=== PATIENT | female | born 1960 | race Caucasian/White ===

== ENCOUNTER → 2017-07-17 15:32 | Outpatient (CLI) | payer OTHER, SELFPAY ==
--- NOTE | 2017-07-17 15:33 | BI_ITS ---
MAMMOGRAPHY - BILATERAL SCREENING REASON FOR EXAM: Female, 57 years old. Routine annual screening examination. PERTINENT HISTORY: Non-contributory. Remote left stereotactic breast biopsy. TECHNIQUE: Digital bilateral breast tre (3D mammographic acquisition) in the CC and MLO projections. 2-D mediolateral oblique (MLO) and craniocaudad (CC) views of both breasts were obtained. CAD: Full Field Digital Mammography with Computer Added Detection was performed. COMPARISON: Comparison is made with prior study dated July 01, 2016 and June 29, 2015. FINDINGS: Breast Composition: There are scattered areas of fibroglandular density. There are no dominant masses or suspicious calcifications. Once again, a tissue clip marker is seen in the retroareolar region of the left breast. Stable small bilateral benign appearing axillary lymph nodes. No other significant abnormalities are identified. There has been no significant change since the prior study. BI/SCREENING MAMM (CAD), BILAT IMPRESSION: Stable bilateral screening mammogram. Yearly follow-up mammogram recommended. (A) ASSESSMENT CATEGORY: BIRADS Category 2: Benign. A letter regarding these results will be sent to the patient by the facility within 30 days. Approximately 10% of breast cancers are not detected by mammography. A normal mammogram should not delay biopsy of a clinically suspicious abnormality. [id number] Electronically Signed: Giorgio Estrada MD at 8:36 EDT Tel [phone], Service support ,
== END ==
PROVIDERS: Family Provider Internal Medicine; PCP Internal Medicine; Visit Provider Internal Medicine
DX: Z12.31 Encounter for screening mammogram for malignant neoplasm of breast (principal)
CPT/HCPCS: 77063; 77067

== ENCOUNTER → 2017-08-29 11:10 | Outpatient (CLI) | payer OTHER, SELFPAY ==
[2017-09-07 10:02] LABS: HPV, High Risk Negative
== END ==
PROVIDERS: Family Provider Internal Medicine; PCP Internal Medicine; Visit Provider Obstetrics & Gynecology
DX: Z12.4 Encounter for screening for malignant neoplasm of cervix (principal); Z11.51 Encounter for screening for human papillomavirus (HPV)
CPT/HCPCS: 87623; 87624; 88175; G0145

== ENCOUNTER → 2018-01-08 08:23 | Outpatient (CLI) | payer OTHER, SELFPAY ==
[2018-01-07 13:59] VITALS: BMI 30.4
[2018-01-08 09:44] LABS: Anion Gap 8 (5-15); BUN 20 mg/dL (7-18); BUN/Creat Ratio 19.2 RATIO (10-20); Calcium,Total 9.6 mg/dL (8.5-10.1); Chloride 107 mmol/L (98-107); Creatinine, Serum 1.04 mg/dL (0.55-1.02); EST Glomerular Filtration Rate 58 mL/min (>60); Est Glom Filt Rate - Afr Amer 70 mL/min (>60); Glucose 88 mg/dL (74-106); Potassium 4.6 mmol/L (3.5-5.1); Sodium Level 143 mmol/L (136-145)
== END ==
PROVIDERS: Family Provider Internal Medicine; PCP Internal Medicine; Referring Provider Internal Medicine; Visit Provider Internal Medicine
DX: N17.9 Acute kidney failure, unspecified (principal); I10 Essential (primary) hypertension
CPT/HCPCS: 36415; 80048

== ENCOUNTER → 2018-07-22 12:18 | Outpatient (CLI) | payer OTHER, SELFPAY ==
[2018-06-24 13:58] VITALS: BMI 31.3
--- NOTE | 2018-07-22 12:20 | BI_ITS ---
MAMMOGRAPHY - BILATERAL SCREENING REASON FOR EXAM: Female, 58 years old. Routine annual screening examination. PERTINENT HISTORY: Non-contributory. Remote left stereotactic breast biopsy. TECHNIQUE: Digital bilateral breast arley (3D mammographic acquisition) in the CC and MLO projections. 2-D mediolateral oblique (MLO) and craniocaudad (CC) views of both breasts were obtained. CAD: Full Field Digital Mammography with Computer Added Detection was performed. COMPARISON: Comparison is made with prior study dated July 17, 2017 and July 01, 2016. FINDINGS: Breast Composition: There are scattered areas of fibroglandular density. There are no dominant masses or suspicious calcifications. A tissue clip marker is once again seen in the retroareolar region of the left breast. Stable small bilateral axillary lymph nodes. No other significant abnormalities are identified. There has been no significant change since the prior study. BI/SCREEN MAMM (CAD) W/ARLEY BILAT IMPRESSION: Stable bilateral screening mammogram. Yearly follow-up mammogram recommended. (A) ASSESSMENT CATEGORY: BIRADS Category 2: Benign. A letter regarding these results will be sent to the patient by the facility within 30 days. Approximately 10% of breast cancers are not detected by mammography. A normal mammogram should not delay biopsy of a clinically suspicious abnormality. [id number] Electronically Signed: Giorgio Estrada, at 14:11 EDT , Service support ,
== END ==
PROVIDERS: Family Provider Internal Medicine; PCP Internal Medicine; Visit Provider Internal Medicine
DX: Z12.31 Encounter for screening mammogram for malignant neoplasm of breast (principal)
CPT/HCPCS: 77063; 77067

== ENCOUNTER → 2018-12-29 08:46 | Outpatient (CLI) | payer OTHER, SELFPAY ==
[2018-12-29 08:36] VITALS: BMI 31.3
[2018-12-29 08:49] LABS: Mucous, Urine 0 SEEN /hpf (<or=2+)
[2018-12-29 13:06] LABS: Color, Urine Yellow (Yellow); Glucose, Dipstick Normal (Normal); Ketone-Dipstick Negative (Negative); Leukocyte Esterase-Dipstick 500 /ul (Negative); Nitrite-Dipstick Negative (Negative); Occult Blood-Urine 25 /ul (Negative); Protein-Dipstick Negative (Negative); Specific Gravity, Urine 1.015 (1.002-1.030); Urine Bilirubin Dipstick Negative (Negative); Urine Clarity Sl. Cloudy (Clear); Urine Urobilinogen Normal (Normal)
[2018-12-29 13:20] LABS: Bacteria 1+ /hpf (None Seen); Red Blood Cells-Urine 0-5 SEEN /hpf (0-5); Squamous Epithelial Cells - UA 0-5 SEEN /hpf (5-10); White Blood Cells 5-10 SEEN /hpf (0-5)
== END ==
PROVIDERS: Family Provider Internal Medicine; PCP Internal Medicine; Visit Provider Internal Medicine
DX: R30.0 Dysuria (principal)
CPT/HCPCS: 81001; 87086; 87088; 87186

== ENCOUNTER → 2018-12-31 07:46 | Outpatient (CLI) | payer OTHER, SELFPAY ==
[2018-12-24 16:01] VITALS: BMI 31.3
[2018-12-29 08:36] VITALS: BMI 31.3
--- NOTE | 2018-12-31 07:48 | US_ITS ---
STUDY: ABDOMINAL ULTRASOUND REASON FOR EXAM: Female, 58 years old. Abdominal pain. TECHNIQUE: Transabdominal ultrasound was performed with real-time and static paul scale imaging. TECHNICAL QUALITY: Limited. Examination limited by bowel gas. COMPARISON: None. FINDINGS: Liver: The liver measures 17.7 cm. There is increased echogenicity consistent with fatty infiltration. The bile ducts are within normal limits. There is hepatic color flow. The direction of portal flow is hepatopetal. There is no demonstrated mass lesion. Portal vein measurement: Gallbladder: Normal distended gallbladder. The gallbladder wall measures 3.0 mm. There is a negative sonographic Reeves's sign. There is no pericholecystic fluid. There are no gallstones. Common Bile Duct (C.B.D.): The common bile duct measures 5.0 mm. Pancreas: Normal size of the head, body and tail of the pancreas. There is normal echogenicity of the pancreas. There is no demonstrated pancreatic mass or cyst. Right Kidney: Normal size of the right kidney. The right kidney measures 10.6 cm x 5.0 cm x 3.7 cm. Normal renal cortex. The right cortex measures 1.2 cm. There is no demonstrated renal mass or cyst. There is no right hydronephrosis. Left Kidney: Normal size of the left kidney. The left kidney measures 11.8 cm x 5.2 cm x 5.3 cm. Normal renal cortex. The left cortex measures 1.8 cm. There is no demonstrated renal mass or cyst. There is no left hydronephrosis. Aorta: Unremarkable I.V.C.: The IVC is patent. There is no ascites. US/Abdomen Complete IMPRESSION: Fatty infiltration of the liver. Electronically Signed: Giorgio Estrada, at 10:13 EST , Service support ,
== END ==
PROVIDERS: Family Provider Internal Medicine; PCP Internal Medicine; Referring Provider Internal Medicine; Visit Provider Internal Medicine
DX: R10.9 Unspecified abdominal pain (principal)
CPT/HCPCS: 76700

== ENCOUNTER → 2019-08-06 07:35 | Outpatient (CLI) | payer OTHER, SELFPAY ==
[2019-08-05 15:34] VITALS: BMI 31.6
--- NOTE | 2019-08-06 07:35 | RAD_ITS ---
STUDY: X-RAY - LUMBAR SPINE REASON FOR EXAM: Female, 59 years old. CHRONIC LOW BACK PAIN WITH RADIATION DOWN LLE. HX OLD TRAUMA AND SURGERY. TECHNIQUE: 5 view(s) of the lumbar spine were obtained including oblique views. COMPARISON: Comparison is made with prior study dated March 28, 2015. FINDINGS: Normal lumbar lordosis. There is a mild dextroscoliosis of the lumbar spine. There is a normal alignment of the vertebrae. There is multilevel endplate spondylosis of the lumbar vertebrae. There is multi-level degenerative disc disease with multi-level disc space narrowing. Facet joint osteoarthritis The soft tissue structures are unremarkable. RAD/L/S Spine Min 4 Views IMPRESSION: Degenerative changes of the spine, as detailed above. Electronically Signed: Giorgio Estrada, at 10:54 EDT , Service support ,
== END ==
PROVIDERS: PCP Internal Medicine; Referring Provider Internal Medicine; Visit Provider Internal Medicine
DX: M54.9 Dorsalgia, unspecified (principal); G89.29 Other chronic pain
CPT/HCPCS: 72110

== ENCOUNTER → 2019-08-26 13:00 | Outpatient (CLI) | payer OTHER, SELFPAY ==
[2019-08-05 15:34] VITALS: BMI 31.6
--- NOTE | 2019-08-26 13:01 | BI_ITS ---
MAMMOGRAPHY - BILATERAL SCREENING REASON FOR EXAM: Female, 59 years old. Routine annual screening examination. PERTINENT HISTORY: Non-contributory. Remote left stereotactic breast biopsy. TECHNIQUE: Digital bilateral breast arley (3D mammographic acquisition) in the CC and MLO projections. 2-D mediolateral oblique (MLO) and craniocaudad (CC) views of both breasts were obtained. CAD: Full Field Digital Mammography with Computer Added Detection was performed. COMPARISON: Comparison is made with prior examination dated July 22, 2018 and July 17, 2017. FINDINGS: Breast Composition: There are scattered areas of fibroglandular density. There are no dominant masses or suspicious calcifications. A tissue clip marker is once again seen in the retroareolar region of the left breast. This is unchanged. No other significant abnormalities are identified. There has been no significant change since the prior study. BI/SCREEN MAMM (CAD) W/ARLEY BILAT IMPRESSION: Stable bilateral screening mammogram. Yearly follow-up mammogram recommended. (A) ASSESSMENT CATEGORY: BIRADS Category 2: Benign. A letter regarding these results will be sent to the patient by the facility within 30 days. Approximately 10% of breast cancers are not detected by mammography. A normal mammogram should not delay biopsy of a clinically suspicious abnormality. [id number] Electronically Signed: Giorgio Estrada, at 8:18 EDT , Service support ,
== END ==
PROVIDERS: PCP Internal Medicine; Referring Provider Internal Medicine; Visit Provider Internal Medicine
DX: Z12.31 Encounter for screening mammogram for malignant neoplasm of breast (principal)
CPT/HCPCS: 77063; 77067

== ENCOUNTER → 2019-10-15 06:36 | Outpatient (CLI) | payer OTHER, SELFPAY ==
[2019-08-05 15:34] VITALS: BMI 31.6
--- NOTE | 2019-10-15 06:44 | MRI_ITS ---
STUDY: MRI LUMBAR SPINE WITHOUT CONTRAST REASON FOR EXAM: Female, 59 years old. back pain and leg numbness, nki TECHNIQUE: Standardized fat and water weighted pulse sequences were obtained in the sagittal and axial planes. COMPARISON: 03/13/2012 FINDINGS: T12-L1: Normal endplates. Normal disc height, hydration and morphology. Normal bilateral facet joints. Normal central canal and bilateral lateral recesses. Normal bilateral intervertebral neural foramina. Normal lumbar lordosis. There is no substantial scoliosis. Normal conus medullaris that terminates at the L1-2: Endplate spondylosis. Decreased disc height and small circumferential disc bulge. Degenerative changes of the bilateral facet joints. Mild narrowing of the central canal and bilateral intervertebral neural foramina. L2-3: Endplate spondylosis. Decreased disc height and small circumferential disc bulge. Degenerative changes of the bilateral facet joints. Mild narrowing of the central canal and bilateral intervertebral neural foramina. L3-4: Endplate spondylosis. Decreased disc height and small circumferential disc bulge. Degenerative changes of the bilateral facet joints. No central canal. Mild narrowing of the bilateral intervertebral neural foramina. L4-5: Endplate spondylosis. Decreased disc height and small circumferential disc bulge. Degenerative changes of the bilateral facet joints. Mild narrowing of the central canal and bilateral intervertebral neural foramina. L5-S1: Endplate spondylosis. Decreased disc height and small circumferential disc bulge. Degenerative changes of the bilateral facet joints. Mild narrowing of the central canal and bilateral intervertebral neural foramina. Normal visualized sacral ala. Normal visualized paraspinous soft tissue structures. MRI/Spine Lumbar (Routine) IMPRESSION: Multilevel degenerative changes, as described above. Postsurgical changes from prior left foraminal discectomy at L2-3 there is no recurrent herniation. Electronically Signed: Missael Griffin, at 7:52 EDT Tel , Service support ,
== END ==
PROVIDERS: PCP Internal Medicine; Referring Provider Anesthesiology Pain Medicine; Visit Provider Anesthesiology Pain Medicine
DX: M54.9 Dorsalgia, unspecified (principal); R20.0 Anesthesia of skin
CPT/HCPCS: 72148

== ENCOUNTER 2019-11-26 16:30 | Outpatient (RCR) | payer OTHER, SELFPAY ==
[2019-08-05 15:34] VITALS: BMI 31.6
--- NOTE | 2019-08-15 09:05 | HP.PTEVAL ---
Patient's Visit Information JUANITA BERMEO is a 59 year old F referred to Physical Therapy by Dr. Maxx Philip MD with a diagnosis of DORSALGIA AND CHRONIC PAIN. Date of Evaluation: 08/12/19 Physical Therapist: Balbina Shipman, PT, Cert MDT - Visit Plan Frequency: 2-3x /Week Duration: 4-6 Weeks Plan: AQUATIC THERAPY FOR PAIN RELEIF, POSTURE CORRECTION/STRENGTHENING, INSTRUCTION IN APPROPRIATE BODY MECHANICS AND ACTIVITY MODIFICATIONS. DLS STARTING WITH A NEUTRAL SPINE PROGRESSING ROM TOLERATED. TIARA LE ROM, STRETCHING AND STRENGTHENING. HEP INSTRUCTION. 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 Disability: NO. Present symptoms: LOW BACK PAIN, TIARA BUTTOCK AND THIGH PAIN LEFT > RIGHT. LEFT THIGH NUMBNESS (CHRONIC). Present since: CHRONIC. SEEMS TO HAVE STARTED TO FLARE UP WAY WORSE SINCE APRIL 2019. Pain Scale: WORST 6/10, LEAST 1-2/10. Currently: 3/10. Commenced as a result of: NO APPARENT REASON. Symptoms at onset: LOW BACK. Worse: STANDING IS THE WORST, SITTING IS THE SECOND WORST. Better: WALKING AND MOVING. LYING DOWN. ICE, PRONE. Disturbed sleep: NO - SLEEPS ON STOMACH. Previous history/Previous treatment: 2 LUMBAR DISCECTOMIES: ONE ABOUT 5 YEARS AGO THEN A SECOND TWO MONTHS LATER. DR. GARCIA DID BOTH SURGERIES. 3 MARIELENA'S IN THE PAST. 2 MORE PENDING STARTING NEXT FRIDAY. PT HERE IN THE PAST FOR BACK AT LEAST 2 TIMES. NO CHIROPRACTIC. MASSAGES. ALEVE, TYLONOL, BIOFREEZE, ICY HOT, OCCASSIONALLY FLEXERIL. PATIENT REPORTS THAT ABOUT 5 YEARS AGO SHE TWISTED WRONG AND THAT LEAD TO HER BACK SURGERIES. Coughing/sneezing/straining: NEGATIVE. Gait: SOMETIMES LEFT LEG FEELS WEAK BUT FEELS SHE WALKS NORMAL. Difficulty initiating urinatin: NO. Accidents: NO. Unexplained weight loss: NO. Imaging: RECENT LUMBAR X-RAY. COMPARISON: Comparison is made with prior study dated March 28, 2015. . FINDINGS: Normal lumbar lordosis. There is a mild dextroscoliosis of the lumbar. spine. There is a normal alignment of the vertebrae. There is multilevel endplate spondylosis of the lumbar vertebrae. There is. multi-level degenerative disc disease with multi-level disc space. narrowing. Facet joint osteoarthritis. The soft tissue structures are unremarkable. . RAD/L/S Spine Min 4 Views. IMPRESSION: Degenerative changes of the spine, as detailed above. PMH: HTN, HIGH CHOLESTEROL, DEPRESSION. OTHER: I CAN'T EVEN SIT IN A CHAIR TO READ THE NEWPAPER IN THE EVENING. DRIVING 6.5 HRS IN A WEEK TO SEE GRANDCHILD. WALKING TWO MILES EVERY DAY - INCREASES BACK SORENESS. - Objective Sitting/Standing Posture: POOR. SLOUCHED WITH FORWARD HEAD AND ROUNDED SHOULDERS. Lordosis: DECREASED. Lateral shift: NO. Relevant shift: N/A. Active Correction of posture: WORSE. Other Observations: INDEP GAIT AND TRANSFERS. TRASFERS ARE GUARDED. Motor deficit: TIARA LE'S 5/5 WITH MMT'ING EXCEPT RIGHT HIP 4/5, LEFT HIP 4-/5 AND LEFT KNEE EXT 4/5. Sensory deficit: DECTREASED LEFT THIGH COMPARED TO RIGHT. ROM deficit: TIGHT TIARA HS'S AND GASTROC SOLEUS COMPLEX'S. Reflexes: NT. Dural Signs: POSITIVE LLE. Lumbar mvmt loss: flex - MIN - INCREASES LEFT LBP. ext - MOD - NE. R SG - MIN - NE. L SG - MOD - NE. Core strength: POOR. Palpation: NO ACUTE THORACIC OR LUMBAR TENDERNESS. TREATMENT: NEUROMUSCULAR REEDUCATION - RETRAINING OF MVMT AND POSTURE FOR SITTING, LYING AND STANDING ACTIVITIES. - Goals Goal 1:: DECREASE C/O TIARA LBP AND LE SX'S (LEFT LE SX'S ARE > RIGHT). Goal Time Frame: 4-6 Weeks Goal 2:: IMPROVE LIFTING, SITTING, STANDING, SOCIAL LIFE, TRAVEL AND WORK FUNCTION Goal Time Frame: 4-6 Weeks Goal 3:: INSTRUCT IN PROPHYLAXIS Goal Time Frame: 4-6 Weeks - Anticipated Interventions Patient/Client Instruction: Educate patient on: Condition, Plan of Care, Risk Factors, Benefits of Fitness Program For the Purpose of:: To improve self management Therapeutic Exercise to Include: Strength training, Body mechanics, Postural training, Flexibilty training, Neuromotor development, In an aquatic setting, Dynamic Lumbar Stabilization For the Purpose of:: To decrease pain, To increase ROM, To improve muscle performance and motor function, To increase tolerance to activity/condition/position, To improve ability of physical actions for home/community/work/leisure Thank you for the opportunity to evaluate your patient. For Medicare and Medicare HMO plans, please review the plan of care and approve it. It will need to be FAXED BACK to us at [phone] for Medicare purposes. For Medicare only, by signing this I certify the plan of care. Please let me know if there are questions or concerns regarding this plan of care. Physician Signature: Date:
--- NOTE | 2019-09-17 16:55 | HP.PTREVAL ---
Dr. Maxx Philip MD, It has been my pleasure to treat JUANITA BERMEO over the last 11 visits for DORSALGIA AND CHRONIC PAIN. Please see the progress note below for an update on the physical therapy plan of care! Subjective: PATIENT REPORTS SHE IS DOING A LOT BETTER. SHE REPORTS THE SHOTS IN HER HIPS AND THE WATER THERAPY IS HELPING. HER BACK AND LEG PAIN ARE BETTER. HER LEG AND CORE STRENGTH ARE GETTING BETTER. FEELS IT COULD BE BENEFICIAL TO CONTINUE PT TO HELP GET STRONGER. SOMETIMES HAVING MORE MID BACK PAIN. Objective/Function: PATIENT WAS SEEN TODAY FOR RE-ASSESSMENT OF PROGRESS TOWARD THE SET PT GOALS AND THE NEED FOR FURTHER PHYSICAL THERAPY VS READINESS FOR DISCHARGE. PATIENT IS MAKING GOOD PROGRESS TOWARD ALL PT GOALS AND IS A GOOD CANDIDATE TO CONTINUE AQUATIC THERAPY DECRASING TO 2 TIMES A WEEK AND INDREASING INDEP EX AT HOME BASED ON PROGRESS MADE AND ROOM FOR MORE IMPROVEMNT. UPON EXAM TODAY: INDEP GAIT AND TRANSFERS. Motor deficit: TIARA LE'S 5/5 WITH MMT'ING EXCEPT RIGHT HIP 4/5, LEFT HIP 4/5. Sensory deficit: DECTREASED LEFT THIGH COMPARED TO RIGHT. ROM deficit: TIGHT TIARA HS'S AND GASTROC SOLEUS COMPLEX'S. Reflexes: NT. Dural Signs: NEGATIVE TIARA LE'S. Lumbar mvmt loss: flex - VERY MINIMAL. ext - MOD - NE. R SG - MIN - NE. L SG - MOD - NE. PATIENT DENIES INCREASED PAIN WITH LUMBAR ROM TESTING ALL PLANES TODAY. Core strength: POOR Plan Plan: CONTINUE AT 2 TIMES A WEEK X 10 VISITS. Goals Goal 1:: DECREASE C/O TIARA LBP AND LE SX'S (LEFT LE SX'S ARE > RIGHT). Goal Time Frame: 4-6 Weeks Goal Progress: Progressing Goal 2:: IMPROVE LIFTING, SITTING, STANDING, SOCIAL LIFE, TRAVEL AND WORK FUNCTION Goal Time Frame: 4-6 Weeks Goal Progress: Progressing Goal 3:: INSTRUCT IN PROPHYLAXIS Goal Time Frame: 4-6 Weeks Goal Progress: Progressing Anticipated Interventions Patient/Client Instruction: Educate patient on: Condition, Plan of Care, Risk Factors, Benefits of Fitness Program For the Purpose of:: To improve self management Therapeutic Exercise to Include: Strength training, Body mechanics, Postural training, Flexibilty training, Neuromotor development, In an aquatic setting, Dynamic Lumbar Stabilization For the Purpose of:: To decrease pain, To increase ROM, To improve muscle performance and motor function, To increase tolerance to activity/condition/position, To improve ability of physical actions for home/community/work/leisure Please do not hesitate to contact me at [phone] by phone or if you have questions or concerns regarding this new plan of care! Sincerely, Balbina Shipman, PT, Cert MDT
--- NOTE | 2019-10-22 16:59 | HP.PTREVAL ---
Dr. Maxx Philip MD, It has been my pleasure to treat JUANITA BREMEO over the last 21 visits for DORSALGIA AND CHRONIC PAIN. Please see the progress note below for an update on the physical therapy plan of care! Subjective: PATIENT REPORTS HE LEGS AND HIPS ARE 95% BETTER AND HER BACK PAIN IS LESS INTENSE BUT STILL CONSTANT. PATIENT REPORTS SHE RARELY FEELS IT IN HER LEGS ANYMORE. MY LEGS HAVE DEFINATELY GOT STRONGER TOO. PATIENT REPORTS SHE JUST WANTS TO BE ABLE TO GO FOR A WALK BUT THE BACK PAIN STOPS HER. PATIENT REPORTS IT HELPS HER BACK WHEN SHE IS IN THE POOL. STILL DOES GET A LITTLE NUBMNESS IN THE LEFT HIP/THIGH BY THE END OF THE DAY. Objective/Function: PATIENT WAS SEEN TODAY FOR RE-ASSESSMENT OF PROGRESS TOWARD THE SET PT GOALS AND THE NEED FOR FURTHER PHYSICAL THERAPY VS READINESS FOR DISCHARGE. PATIENT IS MAKING GOOD PROGRESS IN TERMS OF LE STRENGTH BUT NOT IN TERMS OF BACK PAIN. PATIENT ACTUALLY HAS INCREASED LUMBAR MVMT LOSS SINCE LAST RE-CHECK AND MAY BE A GOOD CANDIDATE FOR SPECIALIST CONSULT INCONJUCTION WITH BELOW AT PLAN. UPON EXAM TODAY: INDEP GAIT AND TRANSFERS. Motor deficit: TIARA LE'S 5/5 WITH MMT'ING. Sensory deficit: MILD DECTREASED LEFT THIGH COMPARED TO RIGHT AND THIS IS A SIGNIFICANT IMPROVEMENT BECAUSE THE NUMBNESS HAS BEEN THERE SINCE HER FIRST BACK SURGERY AND NOW IMPROVING. ROM deficit: TIGHT TIARA HS'S AND GASTROC SOLEUS COMPLEX'S. Reflexes: NT. Dural Signs: NEGATIVE TIARA LE'S. Lumbar mvmt loss: flex - MOD - NE. ext - MILANA - NE. R SG - MILANA- NE. L SG - MILANA - NE. PATIENT DENIES INCREASED PAIN WITH LUMBAR ROM TESTING ALL PLANES TODAY BUT IS DEFINATELY STIFFER THAN LAST RE-CHECK. Core strength: POOR Plan Plan: Recommend transition to I pool program (of choice) at this time with 1x a week AT for x4 weeks to help with transition. Has been given her own copy of I pool program. PATIENT IS AGREEABLE. Goals Goal 1:: DECREASE C/O TIARA LBP AND LE SX'S (LEFT LE SX'S ARE > RIGHT). Goal Time Frame: 4-6 Weeks Goal Progress: Progressing Goal 2:: IMPROVE LIFTING, SITTING, STANDING, SOCIAL LIFE, TRAVEL AND WORK FUNCTION Goal Time Frame: 4-6 Weeks Goal Progress: Progressing Goal 3:: INSTRUCT IN PROPHYLAXIS Goal Time Frame: 4-6 Weeks Goal Progress: Progressing Anticipated Interventions Patient/Client Instruction: Educate patient on: Condition, Plan of Care, Risk Factors, Benefits of Fitness Program For the Purpose of:: To improve self management Therapeutic Exercise to Include: Strength training, Body mechanics, Postural training, Flexibilty training, Neuromotor development, In an aquatic setting, Dynamic Lumbar Stabilization For the Purpose of:: To decrease pain, To increase ROM, To improve muscle performance and motor function, To increase tolerance to activity/condition/position, To improve ability of physical actions for home/community/work/leisure Please do not hesitate to contact me at [phone] by phone or if you have questions or concerns regarding this new plan of care! Sincerely, Balbina Shipman, PT, Cert MDT
--- NOTE | 2019-11-26 16:55 | HP.PTDCSUM ---
It has been my pleasure to treat JUANITA BERMEO referred by Dr. Maxx Philip MD, with the diagnosis of DORSALGIA AND CHRONIC PAIN for a total of 25 visit(s). Discharge Date: 11/26/19 Please see the following information for a summary of their discharge status. Subjective: I AM ALMOST WISHING I WOULDN'T HAVE GOT THAT THIRD INJECTION (ABOUT 2 WEEKS AGO) BECAUSE I AM FEELING THE NUMBNESS AND WEAKNESS IN THE LEFT LEG AGAIN. PATIENT REPORTS THAT PRIOR TO THE SHOT SHE FELT LIKE HER LEGS WERE 100% BETTER. OVER ALL STILL BETTER: NO HIP PAIN NOW THOUGH. BACK PAIN IS MUCH MORE TOLERABLE NOW. I CAN SIT NOW WITHOUT HORRIBLE PAIN AND I CAN STAND LONGER NOW TOO. FEELS READY TO BE DISCHARGED. FOLLOW UP WITH DR. ANTON PENDING DEC [address] ANTON REFERRED HER TO DR. VICTORIA FOR A BACK CONSULT. Lumbar Spine Pain Intensity (Out of 10): 0 RLE Pain Intensity (Out of 10): 0 LLE Pain Intensity (Out of 10): 3 % Improvement: 80 Objective/Function: PATIENT WAS SEEN TODAY FOR RE-ASSESSMENT OF PROGRESS TOWARD THE SET PT GOALS AND THE NEED FOR FURTHER PHYSICAL THERAPY VS READINESS FOR DISCHARGE. UPON EXAM TODAY HER BACK ROM IS A LITTLE BIT BETTER ALL PLANES AND TESTING DOES NOT PROVOKE PAIN. PATIENT IS CONCERNED ABOUT THE WEAKNESS IN HER LEFT LEG SINCE HAVING THE LAST INJECTION. WITH TESTING TODAY HER LEFT HIP IS WEAKER THAN THE RIGHT AND GRADED 4/5. SHE STILL HAS DECREASED LIGHT TOUCH SENSATION OF THE LEFT THIGH COMPARED TO THE RIGHT AND SHE SAID THAT THIS NUMBNESS WAS ALMOST GONE UNTIL THE LAST SHOT. Goal 1:: DECREASE C/O TIARA LBP AND LE SX'S (LEFT LE SX'S ARE > RIGHT). Goal Progress: Goal Met Goal 2:: IMPROVE LIFTING, SITTING, STANDING, SOCIAL LIFE, TRAVEL AND WORK FUNCTION Goal Progress: Goal Met Goal 3:: INSTRUCT IN PROPHYLAXIS Goal Progress: Goal Met Plan: D/C TO [facility] POOL PROGRAM AND FOLLOW UP WITH DR. ANTON AND DR. VICTORIA. PATIENT IS AGREEABLE. If there are questions or concerns regarding this patient's physical therapy, please feel free to call me at [phone]. Thank you for the referral of this patient. Sincerely, Balbina Shipman, PT, Cert MDT
== END 2019-11-26 17:00 | disposition home or self-care (01) ==
LOC: PT 16:30
PROVIDERS: PCP Internal Medicine; Referring Provider Internal Medicine; Visit Provider Internal Medicine
DX: M54.9 Dorsalgia, unspecified (principal); G89.29 Other chronic pain
CPT/HCPCS: 97112; 97113; 97162; 97164

== ENCOUNTER → 2019-12-23 16:16 | Outpatient (CLI) | payer OTHER, SELFPAY ==
--- NOTE | 2019-12-23 | SKTAG_PTH ---
PATIENT: JUANITA [facility]ERMEO [facility] U#:[id number] AGE/SX: 64/F ROOM: RE12/23/[address]: Dr. Mia Arroyo MD : 1960 BED: DIS: SPEC #: [id number] RECD: 12/23/19 16:12 STATUS: LIZ MCCLOUD #: [id number] ANGEL: 12/23/19 00:[address]: Mia Arroyo DEPT: SURGICAL PATHOLOGY RECD BY: Yani Michele ENTERED: 12/24/19 06:34 SP TYPE: SKIN TAG NELSON DR: Dr. 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 See comment. SJ:juno 12/27/19 COMMENT The lesion may represent condyloma. Case has been reviewed in consultation with Dr. Melgar who concurs with the above diagnosis. IDC:AM MICROSCOPIC DESCRIPTION Slides are reviewed. GROSS DESCRIPTION Received is one container labeled with the patient's name and not further designated. The specimen consists of two polypoid pieces of pradhan-brown skin measuring 0.8 x 0.3 x 0.1 cm and 0.5 x 0.4 x 0.1 cm. The entire specimen is submitted in one cassette. / PRINCE:juno 12/24/19 TC: 5 CPT: 66408
[2019-12-23 09:27] VITALS: BMI 31.4
== END ==
PROVIDERS: PCP Internal Medicine; Visit Provider Obstetrics & Gynecology
DX: L85.9 Epidermal thickening, unspecified (principal)
CPT/HCPCS: 88304; 88305

== ENCOUNTER → 2020-02-03 07:41 | Outpatient (CLI) | payer OTHER, SELFPAY ==
[2020-01-27 14:09] VITALS: BMI 31.4
[2020-02-03 08:44] LABS: Anion Gap 5 (5-15); BUN 17 mg/dL (7-18); Calcium,Total 9.5 mg/dL (8.5-10.1); Chloride 107 mmol/L (98-107); Creatinine, Serum 1.06 mg/dL (0.55-1.02); EST Glomerular Filtration Rate 56 mL/min (>60); Est Glom Filt Rate - Afr Amer 68 mL/min (>60); Glucose 98 mg/dL (74-106); Potassium 4.6 mmol/L (3.5-5.1); Sodium Level 141 mmol/L (136-145)
== END ==
PROVIDERS: PCP Internal Medicine; Referring Provider Internal Medicine; Visit Provider Internal Medicine
DX: I10 Essential (primary) hypertension (principal)
CPT/HCPCS: 36415; 80048

== ENCOUNTER → 2020-09-13 11:26 | Outpatient (CLI) | payer OTHER, SELFPAY ==
[2020-07-26 15:23] VITALS: BMI 31.6
--- NOTE | 2020-09-13 11:29 | BI_ITS ---
MAMMOGRAPHY - BILATERAL SCREENING REASON FOR EXAM: Female, 60 years old. Routine annual screening examination. PERTINENT HISTORY: Non-contributory. Remote left stereotactic breast biopsy. TECHNIQUE: Digital bilateral breast raley (3D mammographic acquisition) in the CC and MLO projections. 2-D mediolateral oblique (MLO) and craniocaudad (CC) views of both breasts were obtained. CAD: Full Field Digital Mammography with Computer Added Detection was performed. COMPARISON: Comparison is made with prior examination dated 08/26/2019 and 07/22/2018. FINDINGS: Breast Composition: There are scattered areas of fibroglandular density. There are no dominant masses or suspicious calcifications. A tissue clip marker is once again seen in the retroareolar region of the left breast. No other significant abnormalities are identified. There has been no significant change since the prior study. BI/SCRN MAMM (CAD)W/ARLEY BILAT IMPRESSION: Stable bilateral screening mammogram. Yearly follow-up mammogram recommended. (A) ASSESSMENT CATEGORY: BIRADS Category 2: Benign. A letter regarding these results will be sent to the patient by the facility within 30 days. Approximately 10% of breast cancers are not detected by mammography. A normal mammogram should not delay biopsy of a clinically suspicious abnormality. [id number] Electronically Signed: Giorgio Estrada MD at 12:26 EDT , Service support ,
--- NOTE | 2020-09-13 11:33 | BD_ITS ---
STUDY: DUAL ENERGY X-RAY ABSORPTIOMETRY / DXA REASON FOR EXAM: Female, 60 years old. Osteopenia TECHNIQUE: Bone Mineral Density (BMD) measurements of lumbar spine and bilateral hips were obtained. COMPARISON: Comparison is made with prior examination dated 10/13/2014. FINDINGS: Lumbar Spine (L1-L4): g/cm2 (0.948) / T-score (-1.0) / Z-score (0.7) Findings are suggestive of normal bone density with a low fracture risk. Left Femur Total: g/cm2 (0.795) / T-score (-1.2) / Z-score (-0.1) Left Femoral Neck: g/cm2 (0.649) / T-score (-1.8) / Z-score (-0.4) Right Femur Total: g/cm2 (0.791) / T-score (-1.2) / Z-score (-0.2) Right Femoral Neck: g/cm2 (0.609) / T-score (-2.2) / Z-score (-0.8) The T-Scores on the most recent prior examination were: Lumbar Spine (L1-L4): There has been worsening of bone density since the previous examination. Left Femur Total: which represents a worsening of 3.3%. Right Femur Total: which represents a worsening of 0.5%. BD/Dexa Bone Density Study IMPRESSION: The patient is considered osteopenic as outlined below according to World Henry Organization (WHO) criteria with a high fracture risk. There has been worsening of bone density since the previous examination. Reference Information: The T-score is the number of standard deviations above or below the standard which is normal for young adults at their peak bone mineral density. The World Health Organization (WHO) interprets the T-scores as follows: Above -1 Normal bone density Between -1 and -2.5 Osteopenia Equal to / or below -2.5 Osteoporosis As a practical clinical guideline, osteopenia may be graded as follows: Mild -1 through -1.5 Moderate -1.6 through -2.0 Severe -2.1 through -2.4 The Z-score is the number of standard deviations above or below age-matched controls. A Z-score of less than -1.5 would be considered abnormal. References: 1. NIH Osteoporosis and Related Bone Diseases www osteo.org 2. International Society for Clinical Densitometry www iscd.org 3. National Osteoporosis Foundation www nof.org Electronically Signed: Giorgio Estrada MD at 12:28 EDT , Service support ,
== END ==
PROVIDERS: PCP Internal Medicine; Referring Provider Internal Medicine; Visit Provider Internal Medicine
DX: Z12.31 Encounter for screening mammogram for malignant neoplasm of breast (principal); Z78.0 Asymptomatic menopausal state
CPT/HCPCS: 77063; 77067; 77080

== ENCOUNTER 2020-10-02 07:46 | Emergency (ER) | payer OTHER, SELFPAY ==
[2020-09-21 13:45] VITALS: BMI 31.6
[2020-10-02 07:48] VITALS: BP 157/105; PULSE 87; RESP 15; TEMP 35.5; O2SAT 98; BMI 31.6
--- NOTE | 2020-10-02 07:53 | EKG12_ITS ---
Test Reason : CP Blood Pressure : / mmHG Vent. Rate : 076 BPM Atrial Rate : 076 BPM P-R Int : 176 ms QRS Dur : 086 ms QT Int : 372 ms P-R-T Axes : 032 -03 087 degrees QTc Int : 418 ms Normal sinus rhythm Nonspecific T wave abnormality Abnormal ECG Confirmed by DOMINGA ANN, DALILA ([id number]), publications editor POLO KNUTSON ([id number]) on 10/04/2020 10:35:37 AM Referred By: COLT Confirmed By:DALILA ORR MD
[2020-10-02 08:14] LABS: Absolute Lymphocyte Count 1.61 X10^3/uL (0.83-4.51); Absolute Neutrophil Count 2.6 X10^3/uL (2.0-7.7); Basophil# 0.03 X10^3/uL; Basophil% 0.6 % (0-1); Eosinophil# 0.19 X10^3/uL; Eosinophils% 3.9 % (0-5); Hemoglobin 13.9 g/dL (12.0-15.0); Lymphocyte # 1.61 X10^3/ul (0.83-4.51); Lymphocyte % 33.2 % (19-41); Mean Corp Hgb Conc 32.3 g/dL (32-36); Mean Corpuscular Hgb 30.2 pg (27.0-32.0); Mean Corpuscular Volume 93.5 fL (81-99); Mean Platelet Vol. 9.7 fl (6.2-12.0); Monocyte# 0.42 X10^3/uL; Monocyte% 8.7 % (0-10); NRBC Flagged by Analyzer 0 % (0-5); Neutrophil # 2.59 X10^3/uL (2.7-7.7); Neutrophil % 53.4 % (47-70); Platelet Count 222 K/mm3 (150-450); RBC Distribution Width CV 12.3 % (11.6-14.6); RBC Distribution Width SD 42.3 fl (35.1-43.9); White Blood Count 4.9 K/mm3 (4.4-11.0)
--- NOTE | 2020-10-02 08:14 | ED.VIS.CHEST ---
HPI History of Present Illness Chief Complaint: Chest Pain Informant: patient Narrative Narrative: Patient is a 60-year-old female with a past medical history of hypertension, hyperlipidemia who presents to the emergency department for intermittent chest pain. She states that this started yesterday. She describes it as a sharp sensation just deep to the left breast. It does not radiate. It has come and gone many times since yesterday. Sometimes it lasts for a few seconds other times last for quite a while. She has never had this before in the past. No associated shortness of breath. She does not know aggravating or relieving factors. Exertion does not make it worse. Deep breathing does not make it worse. She denies any abdominal pain or nausea/vomiting. No leg swelling or calf pain. She denies a family history of heart disease. She has a very distant smoking history. At this time she is denying pain. [facility] Medical History Abnormal Pap smear of cervix Chronic back pain Colon cancer screening History of pneumonia History of vaginal delivery Hyperlipemia Hypertension Impacted cerumen, bilateral Osteopenia Osteopenia with high risk of fracture Post-menopausal Preventative health care Proteinuria Seasonal allergies Home Medications calcium carbonate 600 mg PO BID 12/19/16 [History Last Taken Unknown] ascorbic acid (vitamin C) 500 mg capsule,extended release 500 mg PO DAILY 12/08/19 [History Last Taken Unknown] simvastatin 40 mg tablet 40 mg PO QHS #90 tab 01/27/20 [Rx Last Taken Unknown] diclofenac sodium 75 mg tablet,delayed release 75 mg PO BID PRN #60 tab 02/03/20 [Rx Last Taken Unknown] duloxetine 60 mg capsule,delayed release 60 mg PO DAILY #30 cap 08/21/20 [Rx Last Taken Unknown] alendronate 70 mg tablet 70 mg PO QWEEK #14 tab 09/21/20 [Rx Last Taken Unknown] lisinopril 10 mg tablet 10 mg PO DAILY #90 tab 09/25/20 [Rx Last Taken Unknown] Allergy/AdvReac Type Severity Reaction Status Date / Time No Known Allergies Allergy Verified 10/02/20 07:47 Family History Father Cancer lung Alcoholism Brother Hypertension Hyperlipemia Seizures Sister Hyperlipemia Hypertension Surgical History History of appendectomy History of breast biopsy History of discectomy history of sub mandublar gland removal History of tonsillectomy Hx of tubal ligation Social History household members: none housing: house current occupational status: employed Smoking Status: Former smoker Tobacco: How many years used: 10 Electronic Cigarette Use: not used how long ago did patient quit smokin second hand exposure: No alcohol intake: current alcohol intake frequency: a few times a week Alcohol type: beer and wine substance use type: does not use caffeine: Yes what type of physical activity do you participate in: none seatbelt use: always do you feel safe at home: Yes additional social history: Single-Payroll for [employer] ROS ED Constitutional Constitutional ED: Denies chills or fever(s) Eyes Eyes: Denies change in vision ENT ENT ED: Denies epistaxis or rhinorrhea Cardiovascular Cardiovascular: Reports chest pain; Denies palpitations Respiratory/Chest Respiratory/Chest: Denies cough, dyspnea or dyspnea on exertion Gastrointestinal Gastrointestinal: Denies abdominal pain, diarrhea, nausea or vomiting Genitourinary Genitourinary ED: Denies dysuria, hematuria or urinary frequency Musculoskeletal Musculoskeletal: Denies back pain or neck pain Integumentary Denies rash Neurologic Neurologic: Denies dizziness, headache(s) or weakness EXAM Physical Exam Const Vital Signs: 10/02/20 07:48 10/02/20 09:47 Temperature 96 F L Temperature Source Temporal Pulse Rate 87 71 Respiratory Rate 15 14 Blood Pressure 157/105 H 135/97 H Blood Pressure Mean 122 Pulse Ox 98 96 Oxygen Delivery Method Room Air Positive well nourished and well developed General Appearance ED: well developed and NAD HEENT Reports normocephalic, head/scalp atraumatic and moist mucous membranes Eyes PERRL and EOMs intact bilaterally Chest Wall inspection of chest normal Resp normal respiratory effort and clear to auscultation bilaterally Auscultation: Negative for rales, rhonchi or wheezes Cardio regular rate, regular rhythm and no murmurs GI normal to inspection, nondistended, normoactive bowel sounds and non-tender Palpation: soft; Negative for guarding or rebound tenderness present Extremity normal to inspection General Extremety ED: Negative for edema or tenderness General Extremity: Negative for edema Neuro oriented x3, CN's II-XII intact bilaterally and no sensory deficits noted Sensorium / Orientation: alert Motor Exam: strength 5/5 throughout Psych mental status grossly normal Skin no rashes or lesions noted Heart Score History: Slightly/Non-Suspicious ECG: Nonspecific Repolarization Age: >45 - <65 years Risk Factors: 1 or 2 Risk Factors Score: 3 MDM MDM MDM Narrative Medical decision making narrative: Patient presents the ED for intermittent sharp chest pain on the left side. Upon arrival to the ED vital signs within normal limits. She is satting 98% on room air is nontachycardic. No PE risk factors. EKG was obtained which showed some T wave inversions in the anterior leads but no significant ST elevations or depressions. Will check basic lab work including troponin as well as chest x-ray. Patient is currently asymptomatic. Patient's lab work did not reveal any significant acute abnormality. She is not anemic. Her troponin is 6.2. I would expect to be elevated at this point as she has been having symptoms since yesterday. Do not feel a delta troponin would be elevated at this point. She has remained asymptomatic. She does feel comfortable going home. I believe that patient may benefit from Holter monitor. Do recommend she follow-up with her PCP. If she develops any persistent symptoms, shortness of breath she needs to return back to the emergency department. At this time I have very low concern for ACS, aortic catastrophe, thromboembolism. Lab Data Labs: Laboratory Results - last 24 hr 10/02/20 10/02/20 08:00 08:00 WBC 4.9 RBC 4.60 Hgb 13.9 Hct 43.0 MCV 93.5 MCH 30.2 MCHC 32.3 RDW Std Deviation 42.3 RDW Coeff of Melania 12.3 Plt Count 222 MPV 9.7 Immature Gran % (Auto) 0.200 Neut % (Auto) 53.4 Lymph % (Auto) 33.2 [place] % (Auto) 8.7 Eos % (Auto) 3.9 Baso % (Auto) 0.6 Absolute Neuts (auto) 2.6 Absolute Lymphs (auto) 1.61 Nucleated RBC % 0 Sodium 141 Potassium 4.0 Chloride 106 Carbon Dioxide 30.0 Anion Gap 5 BUN 15 Creatinine 0.99 Estim Creat Clear Calc 61.57 Est GFR (MDRD) Af Amer 73 Est GFR (MDRD) Non-Af 60 BUN/Creatinine Ratio 15.1 Glucose 98 Calcium 9.4 Troponin I High Sens 6.2 Radiography Diagnostic Testing: Radiology Impression Chest X-Ray 10/02/20 08:30 IMPRESSION: No acute abnormality is seen. Electronically Signed: Giorgio Estrada MD at 8:47 EDT , Service support , EKG Initial EKG: Attestation: I personally reviewed and interpreted this EKG as follows: (Rate of 76 bpm and normal sinus rhythm. Normal intervals. Normal axis. No significant ST elevations or depressions. Minor T wave inversions in the anterior leads.) Discharge Plan Triage Chief Complaint: Chest Pain ED Provider: Vlad Menard Dx/Rx/DC Orders Clinical Impression: Chest pain Instructions: ED Chest Pain, Noncardiac Prescriptions: No Action simvastatin 40 mg tablet 40 mg PO QHS Qty: 90 RF: 3 ascorbic acid (vitamin C) 500 mg capsule, extended release 500 mg PO DAILY RF: 0 diclofenac sodium 75 mg tablet,delayed release (DR/EC) 75 mg PO BID PRN (Reason: pain) Qty: 60 RF: 4 alendronate 70 mg tablet 70 mg PO QWEEK Qty: 14 RF: 3 calcium carbonate 600 MG tablet 600 mg PO BID RF: 0 duloxetine 60 mg capsule,delayed release(DR/EC) 60 mg PO DAILY Qty: 30 RF: 1 lisinopril 10 mg tablet 10 mg PO DAILY Qty: 90 RF: 3 Primary Care Provider: Maxx Philip Referrals: Maxx Philip MD [Primary Care Provider] - 2 Days Disposition Disposition: Home, Self Care Discharge Date/Time: 10/02/20 09:47
[2020-10-02 08:27] LABS: Anion Gap 5 (5-15); BUN 15 mg/dL (7-18); BUN/Creat Ratio 15.1 RATIO (10-20); Calcium,Total 9.4 mg/dL (8.5-10.1); Chloride 106 mmol/L (98-107); Creatinine, Serum 0.99 mg/dL (0.55-1.02); EST Glomerular Filtration Rate 60 mL/min (>60); Est Glom Filt Rate - Afr Amer 73 mL/min (>60); Estimated Creatinine Clearance 61.57 ml/min; Glucose 98 mg/dL (74-106); Sodium Level 141 mmol/L (136-145); Troponin-I HS 6.2 pg/mL (3.0-53.7)
--- NOTE | 2020-10-02 08:30 | RAD_ITS ---
STUDY: X-RAY CHEST REASON FOR EXAM: Female, 60 years old. Chest pain TECHNIQUE: Single AP portable view of the chest. COMPARISON: Comparison is made with prior study dated 05/04/2013. FINDINGS: EKG electrodes are seen. The lungs are clear and expanded. There is no demonstrated pleural abnormality. Normal size heart. Normal mediastinum and jamia. Normal visualized pulmonary arteries. There is atherosclerotic tortuosity of the aortic arch and descending thoracic aorta. There are degenerative changes of the visualized thoracic spine. Normal visualized ribs, clavicles, and shoulders. There is no demonstrated abnormality of the visualized soft tissue structures of the upper abdomen. RAD/Chest 1 View (Portable) IMPRESSION: No acute abnormality is seen. Electronically Signed: Giorgio Estrada MD at 8:47 EDT , Service support ,
[2020-10-02 09:47] VITALS: BP 135/97; PULSE 71; RESP 14; O2SAT 96
== END 2020-10-02 09:47 | disposition home or self-care (01) ==
PROVIDERS: Emergency Provider Emergency Medicine; PCP Internal Medicine
DX: R07.9 Chest pain, unspecified (principal); Z87.891 Personal history of nicotine dependence; Z98.51 Tubal ligation status; E78.5 Hyperlipidemia, unspecified; I10 Essential (primary) hypertension; M54.9 Dorsalgia, unspecified; G89.29 Other chronic pain; Z87.01 Personal history of pneumonia (recurrent); M85.80 Other specified disorders of bone density and structure, unspecified site
CPT/HCPCS: 71045; 80048; 84484; 85025; 93005; 99284; A4216

== ENCOUNTER → 2020-10-06 08:09 | Outpatient (CLI) | payer OTHER, SELFPAY ==
[2020-10-03 16:01] VITALS: BMI 31.4
[2020-10-06 08:14] LABS: Bacteria 0 SEEN /hpf (None Seen); Mucous, Urine 0 SEEN /hpf (<or=2+); Red Blood Cells-Urine 0 SEEN /hpf (0-5); Squamous Epithelial Cells - UA 0 SEEN /hpf (5-10)
[2020-10-06 08:35] LABS: Color, Urine Yellow (Yellow); Glucose, Dipstick Normal (Normal); Ketone-Dipstick Negative (Negative); Leukocyte Esterase-Dipstick 25 /ul (Negative); Nitrite-Dipstick Negative (Negative); Occult Blood-Urine Negative /ul (Negative); Protein-Dipstick Negative (Negative); Specific Gravity, Urine 1.015 (1.002-1.030); Urine Bilirubin Dipstick Negative (Negative); Urine Clarity Clear (Clear); Urine Urobilinogen Normal (Normal)
[2020-10-06 08:42] LABS: White Blood Cells 0-5 SEEN /hpf (0-5)
[2020-10-06 08:59] LABS: Microalbumin:Creatinine Ratio 6.9 mg/g CRE (<30 mg/g CRE)
[2020-10-06 09:08] LABS: Anion Gap 1 (5-15); BUN 18 mg/dL (7-18); BUN/Creat Ratio 18.3 RATIO (10-20); Calcium,Total 9.5 mg/dL (8.5-10.1); Chloride 105 mmol/L (98-107); Creatinine, Serum 0.98 mg/dL (0.55-1.02); EST Glomerular Filtration Rate 61 mL/min (>60); Est Glom Filt Rate - Afr Amer 73 mL/min (>60); Glucose 93 mg/dL (74-106); Potassium 4.7 mmol/L (3.5-5.1); Sodium Level 138 mmol/L (136-145)
== END ==
PROVIDERS: PCP Internal Medicine; Visit Provider Internal Medicine
DX: R80.9 Proteinuria, unspecified (principal); I10 Essential (primary) hypertension
CPT/HCPCS: 36415; 80048; 81001; 82043; 82570

== ENCOUNTER → 2020-10-16 11:02 | Outpatient (CLI) | payer OTHER, SELFPAY ==
[2020-10-03 16:01] VITALS: BMI 31.4
--- NOTE | 2020-10-16 17:06 | STRESSREP ---
Stress Test Report Exercise stress test. 60-year-old lady with a history of chest pain. Stress protocol: Resting EKG demonstrates normal sinus rhythm with a rate of 63 bpm normal intervals are noted resting blood pressure is 132/88 mmHg. The patient exercised according to regular [place] protocol for total duration of 6 minutes. The maximum heart rate attained was 129 bpm which was 81% of max infected heart rate the maximum workload was 7.2 metabolic equivalents. At rest there were no ST or T wave changes noted suggest ischemia and at peak exercise upsloping ST changes were noted with did not meet the criteria for ischemia. No clinical angina was noted the test was terminated due to dyspnea and the target heart rate being achieved. No arrhythmias were noted. The peak blood pressure was 178/88 mmHg. Conclusion: Stress test with no EKG criteria for ischemia at a moderate workload. Good functional aerobic capacity. No arrhythmias noted.
== END ==
PROVIDERS: PCP Internal Medicine; Referring Provider Nurse Practitioner Family; Visit Provider Nurse Practitioner Family
DX: R07.9 Chest pain, unspecified (principal)
CPT/HCPCS: 93017

== ENCOUNTER 2020-11-08 06:57 | Day surgery (SDC) | payer OTHER, SELFPAY ==
[2020-11-03 09:38] LABS: Free T3 2.9 pg/mL (2.18-3.98); T4 Free Direct 0.85 ng/dL (0.76-1.46)
[2020-11-03 09:45] LABS: Vitamin B12 388 pg/mL (211-911); Vitamin D,25 Hydroxy 42.2 ng/mL
[2020-11-06 16:45] LABS: Vitamin D 1,25-Dihydroxy 38.2 pg/mL (19.9-79.3)
[2020-11-06 20:08] LABS: Endomysial Antibody IgA Negative (Negative)
[2020-11-06 22:01] LABS: Immunoglobulin A 221 mg/dL (87-352); t-Transglutaminase IgA <2 U/mL (0-3)
[2020-11-08 07:15] VITALS: BP 132/86; PULSE 80; RESP 18; TEMP 36.4; O2SAT 98; BMI 30.9
[2020-11-08] MEDS: Lactated Ringers 1,000 ML 100 ML IV (07:15)
--- NOTE | 2020-11-08 08:18 | PCM.HP.BLA ---
History and Physical Date of Admission: 11/08/20 HPI HPI Chief Complaint: ER f/u- chest pain Details: JUANITA BERMEO, is a 60 F who presents to the office today for colon surveillance because of history of colonic polyps. Her last colonoscopy was 5 years ago and at that time she was discovered to have 2 adenomatous polyps. She does not have any problems with constipation or diarrhea. 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 She does not have any problems with bleeding. On occasion she does have issues with occasional protein in her urine. This was thought to be secondary to the nonsteroidals that she takes for her back. She does carry medical history of hypercholesterolemia and hypertension. Recently she had a repeat DEXA scan and it it showed worsening bone density of her lower spine. She is currently taking a bisphosphonate and [id number] calcium with vitamin D. To her knowledge she has not been checked for any vitamin deficiencies. She does have a family history of osteoporosis in her mother. She does not have any problems with sleep apnea. She does not have any anesthesia issues that she knows of such as a reaction from moderate sedation. She does not snore. She had an appendectomy and a tubal ligation, but no other abdominal surgeries. ROS Const Constitutional: No anorexia, fatigue, fever(s), weight change or sleep problems Eyes Eyes: No change in vision ENT ENT: No abnormal hearing, difficulty swallowing, mouth lesions, tongue swelling or throat swelling Resp Respiratory: No cough or shortness of breath Cardio Cardiology: No chest pain at rest, chest pain with exertion, shortness of breath or dyspnea on exertion Gastro GI: No difficulty swallowing Genitourinary-Female: No difficulty urinating or burning urination Musc Musculoskeletal: Positive for back pain; No joint pain, joint swelling, muscle weakness or decreased muscle mass Skin Skin: No hair loss in leg, yellowing of the eye, itchy eyes, rash, skin ulcer or skin swelling Neuro Neurology: No abnormal hearing, abnormal movements, confusion, unsteady gait/balance or memory loss Psych Psychiatric: No anxiety, No confusion and No memory loss Endo Endocrine: No fatigue or weight change Aller/Imm Allergy/Immunologic: No itchy eyes, throat swelling or tongue swelling Tyson/Lymp Hematologic/Lymphatic: No easy bleeding, easy bruising or enlarged lymph nodes Exam Const General: cooperative and comfortable Nutritional Appearance: average body habitus and well nourished [facility] Head: normal to inspection Ears: hearing grossly normal bilaterally Nose: external nose normal Face and sinus: normal facial exam Mouth: oral mucosae normal Throat: posterior oropharynx normal Eyes General: appearance normal, both eyes and all related structures Neck Neck: normal visual inspection Chest Chest palpation & inspection: normal inspection of the chest and normal palpation of entire chest wall Resp Effort & Inspection: normal respiratory effort Auscultation: Bilateral: Clear to Auscultation Cardio Palpation: normal PMI Rate: regular rate Rhythm: regular rhythm GI Inspection: normal to inspection Auscultation: normal bowel sounds Percussion: normal to percussion Palpation: no hepatosplenomegaly Skin General: no rashes or lesions noted Neuro General: patient alert Extrem General: normal to inspection Psych Affect: normal affect Quality Reporting Tobacco Screening ([facility] 138) Smoking Status: Former smoker Assessment and Plan (No Qualifiers) Assessment and Plan (1) Osteopenia with high risk of fracture: Status: Acute Plan - Dr. Lion Friend, DO: Patient will undergo colonoscopy. She will also have a biochemical evaluation for her osteopenia, including a an evaluation for celiac disease. She will also get a biochemical evaluation for her fatigue and inability to lose weight. We also will look for any vitamin deficiencies. Thank you very much for allowing me to participate in the care of this patient. Plan Details Other Medications: New: sodium,potassium,mag sulfates 17.5-3.13-1.6 gram (Suprep Bowel Prep Kit) DILUTE; drink full amount early evening before AND next morning at least 2 hr before procedure; follow w 960 mL water PO 354 mL 0RF colonoscopy MDD 2I have re-examined the patient. There are no clinical changes since date of exam
[2020-11-08 08:50] VITALS: BP 132/86; BP 82/56; PULSE 63; RESP 16; TEMP 35.9; O2SAT 99
[2020-11-08 08:55] VITALS: BP 132/86; BP 88/58; PULSE 63; RESP 16; O2SAT 99
[2020-11-08 09:00] VITALS: BP 106/73; BP 132/86; PULSE 63; RESP 16; O2SAT 98
--- NOTE | 2020-11-08 09:03 | OP.COLON_ITS ---
Patient Name: Shelli Mcgee Procedure Date: 11/08/2020 8:09 AM Date of : 1960 Age: 60 Procedure: Colonoscopy Indications: High risk colon cancer surveillance: Personal history of colonic polyps Providers: Ayad Noble DO Referring MD: Ayad Noble DO Medicines: Propofol per Anesthesia Patient Profile: This is a 60 year old female. Refer to note in patient chart for documentation of history and physical. Last Colonoscopy: 5 years ago. Complications: No immediate complications. Procedure: Pre-Anesthesia Assessment: - Prior to the procedure, a History and Physical was performed, and patient medications, allergies and sensitivities were reviewed. The patient's tolerance of previous anesthesia was reviewed. - The risks and benefits of the procedure and the sedation options and risks were discussed with the patient. All questions were answered and informed consent was obtained. - Pre-procedure physical examination revealed no contraindications to sedation. - ASA Grade Assessment: I - A normal, healthy patient. - After reviewing the risks and benefits, the patient was deemed in satisfactory condition to undergo the procedure in an ambulatory setting. - Using IV propofol under the supervision of a CASE PLANNER was determined to be medically necessary for this procedure based on review of the patient's medical history, medications, and prior anesthesia history. After I obtained informed consent, the scope was passed under direct vision. Throughout the procedure, the patient's blood pressure, pulse, and oxygen saturations were monitored continuously. The colonoscope was introduced through the anus and advanced to the cecum, identified by the appendiceal orifice, ileocecal valve and palpation. The colonoscopy was performed without difficulty. The patient tolerated the procedure well. The quality of the bowel preparation was good. Moderate Sedation: Moderate (conscious) sedation was personally administered by an anesthesia professional. The following parameters were monitored: oxygen saturation, heart rate, blood pressure, and response to care. Scope In: 8:30:33 AM Scope Withdrawal Time 0 hours 9 minutes 36 seconds Scope Out: 8:47:26 AM Total Procedure Duration Time 0 hours 16 minutes 53 seconds Findings: Multiple medium-mouthed diverticula were found in the proximal sigmoid colon and left colon. Medium-mouthed diverticula were found in the colon. Impression: - Mild diverticulosis in the proximal sigmoid colon and in the left colon. - Mild diverticulosis. - No specimens collected. - Moderate diverticulosis in the sigmoid colon. There was no evidence of diverticular bleeding. [All Maneuvers]. Recommendation: - The patient will be observed post-procedure, until all discharge criteria are met. - The patient will be observed post-procedure, until all discharge criteria are met. - Repeat colonoscopy in 5 years for surveillance. - Continue present medications. Procedure Code(s): --- Professional --- 97360, Colonoscopy, flexible; diagnostic, including collection of specimen(s) by brushing or washing, when performed (separate procedure) CPT copyright 2017 [employer]. All rights reserved. The codes documented in this report are preliminary and upon plastic finisher review may be revised to meet current compliance requirements. Ayad Noble DO 11/08/2020 9:03:06 AM This report has been signed electronically. Number of Addenda: 1 Note Initiated On: 11/08/2020 8:09 AM Addendum Number: 1 Addendum Date: 10/25/2021 3:49:37 PM MAC was used instead of moderate sedation for this patient. Ayad Noble DO 10/25/2021 3:49:54 PM This report has been signed electronically.
--- NOTE | 2020-11-08 09:04 | OP.CCLET_ITS ---
10/25/2021 Maxx Philip MD [address] [place] [address] [place] [address] Re : Colonoscopy procedure for Shelli Mcgee Dear Dr. Philip This procedure was performed on Sunday, November 08, 2020. My impressions and recommendations are as follows: Impressions : - Mild diverticulosis in the proximal sigmoid colon and in the left colon. - Mild diverticulosis. - No specimens collected. - Moderate diverticulosis in the sigmoid colon. There was no evidence of diverticular bleeding. [All Maneuvers]. Recommendations : - The patient will be observed post-procedure, until all discharge criteria are met. - The patient will be observed post-procedure, until all discharge criteria are met. - Repeat colonoscopy in 5 years for surveillance. - Continue present medications. My findings are described in the full procedure note, which is enclosed. If I can be of further assistance, please feel free to contact me at . Sincerely, Ayad Noble, 11/08/2020 9:03:06 AM This report has been signed electronically.
[2020-11-08 09:05] VITALS: BP 108/78; BP 132/86; PULSE 64; RESP 16; TEMP 35.6; O2SAT 97
== END 2020-11-08 09:34 ==
LOC: EN 06:57 → AC 06:58
PROVIDERS: PCP Internal Medicine; Referring Provider Internal Medicine Gastroenterology; Visit Provider Internal Medicine Gastroenterology
PROC: 0DJD8ZZ Inspection of Lower Intestinal Tract, Via Natural or Artificial Opening Endoscopic (ICD-10-PCS; CPT 45378; principal; 2020-11-08 07:55)
DX: Z12.11 Encounter for screening for malignant neoplasm of colon (principal); K57.30 Diverticulosis of large intestine without perforation or abscess without bleeding; M81.0 Age-related osteoporosis without current pathological fracture; E78.00 Pure hypercholesterolemia, unspecified; I10 Essential (primary) hypertension; F32.9 Major depressive disorder, single episode, unspecified; Z82.62 Family history of osteoporosis; Z87.891 Personal history of nicotine dependence; Z87.19 Personal history of other diseases of the digestive system
CPT/HCPCS: 45378; 36415; 82306; 82607; 82652; 82746; 82784; 83516; 84439; 84443; 84481; 86255; J7120; J2405

== ENCOUNTER → 2020-11-23 12:56 | Outpatient (CLI) | payer OTHER, SELFPAY ==
[2020-11-23 13:13] VITALS: BP 111/81; PULSE 81; RESP 16; TEMP 36.9; O2SAT 97
[2020-11-23] MEDS: DENOSUMAB 60 MG/ML SC (13:17)
== END ==
PROVIDERS: PCP Internal Medicine; Referring Provider Nurse Practitioner Family; Visit Provider Nurse Practitioner Family
DX: M85.80 Other specified disorders of bone density and structure, unspecified site (principal)
CPT/HCPCS: 96372; J0897

== ENCOUNTER → 2021-02-07 15:48 | Outpatient (CLI) | payer OTHER, SELFPAY ==
[2021-02-07 18:39] LABS: Vitamin B12 348 pg/mL (211-911)
[2021-02-07 18:42] LABS: Anion Gap 6 (5-15); BUN 18 mg/dL (7-18); BUN/Creat Ratio 16.8 RATIO (10-20); Calcium,Total 9.3 mg/dL (8.5-10.1); Chloride 107 mmol/L (98-107); Creatinine, Serum 1.07 mg/dL (0.55-1.02); EST Glomerular Filtration Rate 55 mL/min (>60); Est Glom Filt Rate - Afr Amer 67 mL/min (>60); Glucose 85 mg/dL (74-106); Potassium 4.2 mmol/L (3.5-5.1); Sodium Level 139 mmol/L (136-145)
== END ==
PROVIDERS: PCP Internal Medicine; Visit Provider Internal Medicine
DX: I10 Essential (primary) hypertension (principal); K14.6 Glossodynia
CPT/HCPCS: 36415; 80048; 82607

== ENCOUNTER 2021-03-01 15:18 | Outpatient (CLI) | payer OTHER, SELFPAY ==
[2021-03-01 14:52] VITALS: BP 124/84; PULSE 72; RESP 16; TEMP 36.7; O2SAT 100
[2021-03-01] MEDS: 0.9% Saline Lock 10 ML Syringe IV (15:29)
[2021-03-01 15:30] VITALS: BP 133/85; PULSE 87; RESP 16; TEMP 36.8; O2SAT 99; BMI 27.9
[2021-03-01] MEDS: DiphenhydrAMINE 50 MG/ML Syringe IV (15:52)
[2021-03-01] MEDS: MethylPREDNISolone 125 MG/2 ML Vial IV (15:54)
--- NOTE | 2021-03-01 16:02 | NURSING ---
Pt c/o generalized itching. No rash or hives noted. Pt medicated w/ benadryl and solumedrol per orders. Infusion stopped and restarted at 155ml/hr after meds given and symptoms subsided. Will cont. to monitor.
[2021-03-01 16:26] VITALS: BP 132/93; PULSE 65; RESP 16; TEMP 36.8; O2SAT 100
[2021-03-01 17:30] VITALS: BP 129/87; PULSE 70; RESP 16; TEMP 36.5; O2SAT 100
== END 2021-03-01 23:59 | disposition home or self-care (01) ==
LOC: MS3OUT 15:18 → MS3 15:19
PROVIDERS: PCP Internal Medicine; Referring Provider Nurse Practitioner Adult Health; Visit Provider Nurse Practitioner Adult Health
DX: Z23 Encounter for immunization (principal); U07.1 COVID-19
CPT/HCPCS: J7050; M0243; A4216; Q0244

== ENCOUNTER 2021-05-24 12:49 | Outpatient (CLI) | payer OTHER, SELFPAY ==
[2021-05-24 12:57] VITALS: BP 95/66; PULSE 83; RESP 16; TEMP 36.3; O2SAT 98; BMI 27.9
[2021-05-24] MEDS: DENOSUMAB 60 MG/ML SC (13:06)
== END 2021-05-24 23:59 | disposition home or self-care (01) ==
LOC: MEDOUTP 12:50
PROVIDERS: PCP Internal Medicine; Referring Provider Nurse Practitioner Family; Visit Provider Nurse Practitioner Family
DX: M81.0 Age-related osteoporosis without current pathological fracture (principal)
CPT/HCPCS: 96372; J0897

== ENCOUNTER → 2021-09-14 | Outpatient (CLI) | payer OTHER, SELFPAY ==
--- NOTE | 2021-09-14 09:10 | BI_ITS ---
MAMMOGRAPHY - BILATERAL SCREENING REASON FOR EXAM: Female, 61 years old. Routine annual screening examination. PERTINENT HISTORY: Non-contributory. Remote left stereotactic breast biopsy. TECHNIQUE: Digital bilateral breast arley (3D mammographic acquisition) in the CC and MLO projections. 2-D mediolateral oblique (MLO) and craniocaudad (CC) views of both breasts were obtained. CAD: Full Field Digital Mammography with Computer Added Detection was performed. COMPARISON: Comparison is made with prior study dated 09/13/2020 and 08/26/2019. FINDINGS: Breast Composition: There are scattered areas of fibroglandular density. There are no dominant masses or suspicious calcifications. A tissue clip marker is once again seen in the retroareolar region of the left breast. Stable small benign appearing bilateral axillary nodes. No other significant abnormalities are identified. There has been no significant change since the prior study. BI/SCRN MAMM (CAD)W/ARLEY BILAT IMPRESSION: Stable bilateral screening mammogram. Yearly follow-up mammogram recommended. (A) ASSESSMENT CATEGORY: BIRADS Category 2: Benign. A letter regarding these results will be sent to the patient by the facility within 30 days. Approximately 10% of breast cancers are not detected by mammography. A normal mammogram should not delay biopsy of a clinically suspicious abnormality. [id number] Electronically Signed: Giorgio Estrada MD at 10:11 EDT ,
== END | disposition home or self-care (01) ==
LOC: OPBI 09:09
PROVIDERS: PCP Internal Medicine; Referring Provider Internal Medicine; Visit Provider Internal Medicine
DX: Z12.31 Encounter for screening mammogram for malignant neoplasm of breast (principal)
CPT/HCPCS: 77063; 77067

== ENCOUNTER → 2021-11-22 | Outpatient (CLI) | payer OTHER, SELFPAY ==
[2021-11-22 14:39] VITALS: BP 112/71; PULSE 72; O2SAT 96
[2021-11-22] MEDS: DENOSUMAB 60 MG/ML SC (14:43)
== END | disposition home or self-care (01) ==
LOC: MEDOUTP 14:30
PROVIDERS: PCP Internal Medicine; Referring Provider Nurse Practitioner Family; Visit Provider Nurse Practitioner Family
DX: M85.80 Other specified disorders of bone density and structure, unspecified site (principal)
CPT/HCPCS: 96372; J0897

== ENCOUNTER → 2022-02-14 | Outpatient (CLI) | payer OTHER, SELFPAY ==
[2022-02-14 18:20] LABS: Anion Gap 5 (5-15); BUN 24 mg/dL (7-18); BUN/Creat Ratio 22.9 RATIO (10-20); Calcium,Total 9.3 mg/dL (8.5-10.1); Chloride 107 mmol/L (98-107); Creatinine, Serum 1.05 mg/dL (0.55-1.02); EST Glomerular Filtration Rate 56 mL/min (>60); Est Glom Filt Rate - Afr Amer 68 mL/min (>60); Glucose 103 mg/dL (74-106); Potassium 4.2 mmol/L (3.5-5.1); Sodium Level 140 mmol/L (136-145)
== END | disposition home or self-care (01) ==
LOC: BIMLAB 15:48
PROVIDERS: PCP Internal Medicine; Referring Provider Internal Medicine; Visit Provider Internal Medicine
DX: I10 Essential (primary) hypertension (principal)
CPT/HCPCS: 36415; 80048

== ENCOUNTER → 2022-05-23 | Outpatient (CLI) | payer OTHER, SELFPAY ==
[2022-05-23] MEDS: DENOSUMAB 60 MG/ML SC (14:48)
[2022-05-23 14:51] VITALS: BP 116/80; PULSE 71; RESP 16; TEMP 36.9; O2SAT 100; BMI 28.7
== END | disposition home or self-care (01) ==
LOC: MEDOUTP 14:28
PROVIDERS: PCP Internal Medicine; Referring Provider Nurse Practitioner Family; Visit Provider Nurse Practitioner Family
DX: M85.80 Other specified disorders of bone density and structure, unspecified site (principal)
CPT/HCPCS: 96372; J0897